=== PATIENT | male | born 1980 | race Caucasian/White ===

== ENCOUNTER 2017-02-02 00:49 | Emergency (ER) | payer OTHER ==
[~2017-02-02] VITALS: Ht 185.4 cm; Wt 127.0 kg
[~2017-02-02 00:49] MED LIST: AMOXICILLIN500 M3 PO
[2017-02-02 01:21] LABS: ABSOLUTE BASOPHIL COUNT 0 /CUMM (0.0-0.2); ABSOLUTE EOSINOPHIL COUNT 0.2 /CUMM (0.0-0.7); ABSOLUTE GRANULOCYTE CT 3.8 /CUMM (1.4-6.5); ABSOLUTE LYMPH COUNT 1.7 /CUMM (1.2-3.4); ABSOLUTE MONOCYTE COUNT 0.8 /CUMM (0.10-0.60); BASOPHIL % 0.6 % (0.0-2.0); EOSINOPHIL % 2.5 % (0-5); GRANULOCYTE % 58.1 % (42.2-75.2); HEMATOCRIT 43.6 % (42-52); MEAN CORPUSCULAR HGB 29.5 PG (27.0-31.0); MEAN CORPUSCULAR HGB CONC 34.2 G/DL (33.0-37.0); MEAN CORPUSCULAR VOLUME 86.2 FL (80.0-94.0); MEAN PLATELET VOLUME 7.9 FL (7.4-10.4); PLATELET COUNT 209 /CUMM (130-400); RBC DISTRIBUTION WIDTH 13.6 % (11.5-14.5); RED BLOOD CELL CT 5.06 /CUMM (4.70-6.10); WHITE BLOOD CELL COUNT 6.5 /CUMM (4.8-10.8)
--- NOTE | 2017-02-02 01:56 | ED GI/GU/ABDOMINAL COMPLAINT ---
History of Present Illness General Chief Complaint: Abdominal Pain/Flank Pain Stated Complaint: "PER PT ABD PAIN" Source: patient Exam Limitations: no limitations Vital Signs & Intake/Output Vital Signs & Intake/Output Vital Signs Date Time Temp Pulse Resp B/P B/P Pulse O2 O2 Flow FiO2 Mean Ox Delivery Rate 02/02 0255 97.0 80 20 120/80 98 Room Air 02/02 0108 96.6 78 16 115/83 98 Room Air Allergies Coded Allergies: No Known Allergies (09/26/16) Reconcile Medications Dicyclomine HCl 20 MG TABLET 1 TAB PO BID PRN SPASM Dicyclomine HCl 20 MG TABLET 1 TAB PO BID PRN SPASM Pantoprazole Sodium (Protonix) 40 MG TABLET.DR 1 TAB PO DAILY GERD Pantoprazole Sodium (Protonix) 40 MG TABLET.DR 1 TAB PO DAILY GERD Triage Note: 36YO MALE TO TRIAGE W/CO "STOMACH PAIN X 2 D" DENIES ANY N,V,D. STATESDECREASED APPETITE. STATES NO RELIEF AFTER GAS EX , TYLENOL Triage Nurses Notes Reviewed? yes Onset: Abrupt Duration: day(s): (2) Timing: multiple episodes today Quality/Severity: moderate, stabbing Location: periumbilical Radiation: no radiation Activities at Onset: none No Modifying Factors: none Associated Symptoms: NAUSEA, BLOATING HPI: This is a 36-year-old male with history of obesity presents to the ER for chief complaint of mid abdominal pain for the past 2 days. Pain is worse with movements. He states he felt swollen and thought maybe he had gas. Took some Gas-X without relief. Denies any vomiting nausea fever chills or belching. Her normal not bowel movement prior to arrival. He states he does feel distended. No history of similar symptoms in the past before. He is an occasional drinker. Denies any family history. Past History Travel History Traveled to [place] past 21 day No Medical History Any Pertinent Medical History? see below for history Neurological: NONE EENT: NONE Cardiovascular: NONE Respiratory: NONE Gastrointestinal: NONE Hepatic: NONE Renal: NONE Musculoskeletal: NONE Psychiatric: NONE Endocrine: NONE Blood Disorders: NONE Cancer(s): NONE Surgical History Surgical History: MULTIPLE SHOULDER SURGERIES Psychosocial History What is your primary language Slovak Tobacco Use: Never used ETOH Use: occasional use Family History Hx Contributory? No Review of Systems Review of Systems Constitutional: Denies: chills, fever. EENTM: Reports: no symptoms. Respiratory: Denies: cough, short of breath. Cardiovascular: Denies: chest pain. GI: Reports: abdominal pain, bloating. Denies: nausea, vomiting. Genitourinary: Denies: discharge, dysuria, frequency, hematuria, hesitation, nocturia, pain, urgency. Musculoskeletal: Denies: back pain. Skin: Reports: no symptoms. Neurological/Psychological: Reports: no symptoms. Hematologic/Endocrine: Denies: bruising, bleeding, polyuria, polydipsia. Immunologic/Allergic: Denies: splenectomy. All Other Systems: Reviewed and Negative Physical Exam Physical Exam General Appearance: well developed/nourished, alert, awake, mild distress, obese Head: atraumatic, normal appearance Eyes: Bilateral: normal appearance, PERRL, normal inspection. Ears, Nose, Throat, Mouth: hearing grossly normal, moist mucous membrane Neck: normal inspection, supple, full range of motion Respiratory: normal breath sounds, chest non-tender, no respiratory distress Cardiovascular: regular rate/rhythm Peripheral Pulses: 2+ radial (R), 2+ radial (L) Gastrointestinal: normal bowel sounds, soft, tenderness (PERIUMBILICAL, MILD RUQ ), NO REBOUND OR GUARDING Male Genitals: normal genitalia Back: normal inspection, normal range of motion Extremities: normal range of motion Neurologic/Psych: no motor/sensory deficits, awake, alert, oriented x 3, normal gait Skin: intact, normal color, warm/dry Core Measures ACS in differential dx? No Severe Sepsis Present: No Septic Shock Present: No Progress Differential Diagnosis: gastritis, pancreatitis, perforated viscous, SBO, IBS/ IBD Plan of Care: Orders Procedure Date/time Status LIPASE 02/02 109 Complete COMPREHENSIVE METABOLIC PANEL 02/02 109 Complete CBC WITHOUT DIFFERENTIAL 02/02 109 Complete AMYLASE 02/02 109 Complete Laboratory Tests 02/02/17 0202: Urine Color Cancelled, Urine Clarity Cancelled, Urine pH Cancelled, Ur Specific [place] Cancelled, Urine Protein Cancelled, Urine Ketones Cancelled, Urine Nitrite Cancelled, Urine Bilirubin Cancelled, Urine Urobilinogen Cancelled, Ur Leukocyte Esterase Cancelled, Ur Microscopic Cancelled, Urine Hemoglobin Cancelled, Urine Glucose Cancelled 02/02/17 0110: Anion Gap 11, Estimated GFR > 60, BUN/Creatinine Ratio 18.9, Glucose 122 H, Calcium 8.3 L, Total Bilirubin 0.4, AST 31, ALT 67, Alkaline Phosphatase 76, Total Protein 6.4, Albumin 3.9, Globulin 2.5, Albumin/Globulin Ratio 1.6, Amylase 44, Lipase 75, CBC w Diff NO MAN DIFF REQ, RBC 5.06, MCV 86.2, MCH 29.5, RDW 13.6, MPV 7.9, Gran % 58.1, Lymphocytes % 25.9, Monocytes % 12.9 H, Eosinophils % 2.5, Basophils % 0.6, Absolute Granulocytes 3.8, Absolute Lymphocytes 1.7, Absolute Monocytes 0.8 H, Absolute Eosinophils 0.2, Absolute Basophils 0, PUBS MCHC 34.2 CT scan, labs within normal limits. Patient given Bentyl and GI cocktail. [place] diet advised. Bentyl and Protonix described to the pharmacy. He'll follow-up with the primary care doctor in the office. (RENEA LYN,GIOVANNI) Diagnostic Imaging: Viewed by Me: CT Scan. Discussed w/RAD: CT Scan. Radiology Impression: PATIENT: TRUPTI NÚÑEZ PRESENT AGE: 36 PATIENT ACCOUNT NO: [id number] : 81 LOCATION: [facility] ORDERING PHYSICIAN: GIOVANNI MEIER MD SERVICE DATE: 02/02/17 EXAM TYPE: CAT - CT ABD & PELVIS W IV CONTRAST EXAMINATION: CT ABDOMEN AND PELVIS WITH CONTRAST CLINICAL INFORMATION: Mid abdominal pain and distention. Pain with movement. COMPARISON: None TECHNIQUE: Multidetector volumetric imaging was performed of the abdomen and pelvis before and after the IV administration of 95 mL of Optiray 320 intravenous contrast. Sagittal and coronal reformatted images were obtained on the technologist's workstation. DLP: 1402 mGy-cm FINDINGS: LUNG BASES: The visualized lung bases are unremarkable. LIVER, GALLBLADDER, AND BILIARY TREE: The liver is normal in size, shape, and attenuation. No focal hepatic lesion or biliary ductal dilatation is present. The gallbladder is unremarkable with no evidence of radiopaque gallstones, gallbladder wall thickening, or obvious pericholecystic inflammatory changes. PANCREAS: Unremarkable. SPLEEN: Unremarkable. ADRENAL GLANDS: Unremarkable. KIDNEYS AND URETERS: The kidneys are normal in size, shape, and attenuation. No hydronephrosis, hydroureter, or calculi seen. No perinephric stranding. BLADDER: Unremarkable. GASTROINTESTINAL TRACT: The stomach and small bowel are unremarkable. No dilated loops of bowel or evidence of obstruction. Normal appendix. No colonic wall thickening or inflammatory change. ABDOMINAL WALL: No significant hernia is appreciated. LYMPH NODES: No pathologically enlarged lymph nodes. Multiple small mesenteric lymph nodes are seen. VASCULAR: Unremarkable. PELVIC VISCERA: The prostate and seminal vesicles are unremarkable. OSSEOUS STRUCTURES: Unremarkable. IMPRESSION: No acute findings of the abdomen or pelvis. No acute inflammatory changes. DICTATED BY: DEVONTE SALGADO MD DATE/ TIME DICTATED:02/02/17227 TEAM CDL DRIVER:JAMIE DATE/TIME TRANSCRIBED: 02/02/17227 CONFIDENTIAL, DO NOT COPY WITHOUT APPROPRIATE AUTHORIZATION. < Electronically signed in Other Vendor System> SIGNED BY: DEVONTE SALGADO MD 02/02/17 023 Initial ED EKG: none Departure Departure Time of Disposition: 253 Disposition: HOME OR SELF CARE Condition: Stable Clinical Impression Primary Impression: Abdominal pain Referrals: PATIENT HAS NO PRIMARY CARE DR (PCP/Family) Additional Instructions: Take the Bentyl and Protonix as directed. Follow a bland diet and advance when you're feeling better. Follow-up with your doctor in the office. Return to ER as needed. Departure Forms: Customer Survey General Discharge Information Prescriptions: Current Visit Scripts Pantoprazole Sodium (Protonix) 1 TAB PO DAILY #30 TAB Dicyclomine HCl 1 TAB PO BID PRN SPASM #30 TAB Pantoprazole Sodium (Protonix) 1 TAB PO DAILY #30 TAB Dicyclomine HCl 1 TAB PO BID PRN SPASM #30 TAB
--- NOTE | 2017-02-02 02:34 | CT SCAN REPORT ---
EXAMINATION: CT ABDOMEN AND PELVIS WITH CONTRAST CLINICAL INFORMATION: Mid abdominal pain and distention. Pain with movement. COMPARISON: None TECHNIQUE: Multidetector volumetric imaging was performed of the abdomen and pelvis before and after the IV administration of 95 mL of Optiray 320 intravenous contrast. Sagittal and coronal reformatted images were obtained on the technologist's workstation. DLP: 1402 mGy-cm FINDINGS: LUNG BASES: The visualized lung bases are unremarkable. LIVER, GALLBLADDER, AND BILIARY TREE: The liver is normal in size, shape, and attenuation. No focal hepatic lesion or biliary ductal dilatation is present. The gallbladder is unremarkable with no evidence of radiopaque gallstones, gallbladder wall thickening, or obvious pericholecystic inflammatory changes. PANCREAS: Unremarkable. SPLEEN: Unremarkable. ADRENAL GLANDS: Unremarkable. KIDNEYS AND URETERS: The kidneys are normal in size, shape, and attenuation. No hydronephrosis, hydroureter, or calculi seen. No perinephric stranding. BLADDER: Unremarkable. GASTROINTESTINAL TRACT: The stomach and small bowel are unremarkable. No dilated loops of bowel or evidence of obstruction. Normal appendix. No colonic wall thickening or inflammatory change. ABDOMINAL WALL: No significant hernia is appreciated. LYMPH NODES: No pathologically enlarged lymph nodes. Multiple small mesenteric lymph nodes are seen. VASCULAR: Unremarkable. PELVIC VISCERA: The prostate and seminal vesicles are unremarkable. OSSEOUS STRUCTURES: Unremarkable. IMPRESSION: No acute findings of the abdomen or pelvis. No acute inflammatory changes.
[2017-02-02] MEDS ORDERED: PROTONIX40 M3 PO ×2 (02:47→02:52)
[2017-02-02] MEDS ORDERED: DICYCLOMINE HCL20 M1 PO ×2 (02:47→02:52)
[2017-02-02 02:55] VITALS: BP 120/80
== END 2017-02-02 02:59 ==
LOC: ERH 00:49
PROVIDERS: Emergency Medicine
DX: R10.33 Periumbilical pain (principal)
CPT/HCPCS: 74177

== ENCOUNTER 2017-11-02 15:12 | Emergency (ER) | payer OTHER ==
[~2017-11-02] VITALS: Ht 185.4 cm; Wt 133.8 kg
[~2017-11-02 15:12] MED LIST changes: +CYCLOBENZAPRINE10 M1 PO; +DICYCLOMINE HCL20 M1 PO; +IBUPROFEN600 M1 PO; +PROTONIX40 M3 PO
--- NOTE | 2017-11-02 17:08 | ULTRASOUND REPORT ---
EXAMINATION: US TRIPLEX LOWER EXTREMITY, LEFT CLINICAL INFORMATION: Left lower extremity pain, tenderness and swelling. COMPARISON: None. TECHNIQUE: Color-flow triplex imaging with spectral analysis and compression Doppler were performed on the left lower extremity. FINDINGS: Respiratory variation, normal compression and augmented flow are noted throughout the lower extremity. The visualized common femoral vein, proximal greater saphenous vein, femoral vein, profunda femoral vein, popliteal vein and visualized mid calf peroneal and posterior tibial venous segments show no evidence of deep venous thrombosis. There is no Calero's cyst. IMPRESSION: Normal triplex scan without evidence of deep venous thrombosis involving the left lower extremity.
[2017-11-02 17:38] LABS: ABSOLUTE BASOPHIL COUNT 0 /CUMM (0.0-0.2); ABSOLUTE EOSINOPHIL COUNT 0.2 /CUMM (0.0-0.7); ABSOLUTE GRANULOCYTE CT 4.8 /CUMM (1.4-6.5); ABSOLUTE LYMPH COUNT 1.7 /CUMM (1.2-3.4); ABSOLUTE MONOCYTE COUNT 0.8 /CUMM (0.10-0.60); BASOPHIL % 0.4 % (0.0-2.0); EOSINOPHIL % 2.7 % (0-5); GRANULOCYTE % 63.1 % (42.2-75.2); HEMATOCRIT 46.2 % (42-52); MEAN CORPUSCULAR HGB 28.9 PG (27.0-31.0); MEAN CORPUSCULAR HGB CONC 33.3 G/DL (33.0-37.0); MEAN CORPUSCULAR VOLUME 86.9 FL (80.0-94.0); MEAN PLATELET VOLUME 7.9 FL (7.4-10.4); PLATELET COUNT 289 /CUMM (130-400); RBC DISTRIBUTION WIDTH 13.2 % (11.5-14.5); RED BLOOD CELL CT 5.32 /CUMM (4.70-6.10); WHITE BLOOD CELL COUNT 7.5 /CUMM (4.8-10.8)
--- NOTE | 2017-11-02 18:17 | ED UPPER/LOWER EXTREMITY COMPL ---
History of Present Illness General Chief Complaint: General Adult Stated Complaint: ? BLOOD CLOT IN LT LEG Source: patient, family Exam Limitations: no limitations Vital Signs & Intake/Output Vital Signs & Intake/Output Vital Signs Date Time Temp Pulse Resp B/P B/P Pulse O2 O2 Flow FiO2 Mean Ox Delivery Rate 11/02 1844 98.5 77 16 142/76 96 Room Air 11/02 1654 97.2 86 17 148/82 99 Room Air 11/02 1517 96.3 93 20 152/96 97 Room Air Allergies Coded Allergies: No Known Allergies (09/26/16) Reconcile Medications Cyclobenzaprine HCl 10 MG TABLET 1 TAB PO QPM muscle strain Dicyclomine HCl 20 MG TABLET 1 TAB PO BID PRN SPASM Dicyclomine HCl 20 MG TABLET 1 TAB PO BID PRN SPASM Ibuprofen 600 MG TABLET 1 TAB PO Q6PRN PRN pain with food Pantoprazole Sodium (Protonix) 40 MG TABLET.DR 1 TAB PO DAILY GERD Pantoprazole Sodium (Protonix) 40 MG TABLET.DR 1 TAB PO DAILY GERD Triage Note: PT TO ED STATES "I THINK I HAVE A BLOOD CLOT IN MY LEFT LEG" X 3 DAYS. STATES PAIN TO LEFT LEG, HOT TO TOUCH AND TENDER. NO H/O BLOOD CLOTS. PT IS S/P RIGHT SHOULDER SURGERY 10/28 AT [facility]. Triage Nurses Notes Reviewed? yes HPI: 37 yo M presenting with left lower extremity pain. Left calf pain radiating to the left lateral rosas and left lateral thigh for the last 2-3 days, gradual onset, constant with fluctuating intensity, improved by stretching leg with foot in dorsiflexion, worse with standing on left leg. Associated sense of "heaviness " with dull ache, no parasthesias, motor weakness, temperature changes of left foot. Denies fevers, chills, chest pain, SOB, palpitations, abdominal Sx, urinary Sx, headache, neck pain or focal neurologic Sx. Recent arthroscopic surgery right shoulder 4 days ago, discharged same day without hospitalization or prolonged immobility. (Sangeeta LYN,Prasanna) Past History Travel History Traveled to [place] past 21 day No Medical History Any Pertinent Medical History? see below for history Neurological: NONE EENT: NONE Cardiovascular: NONE Respiratory: NONE Gastrointestinal: NONE Hepatic: NONE Renal: NONE Musculoskeletal: NONE Psychiatric: NONE Endocrine: NONE Blood Disorders: NONE Cancer(s): NONE Surgical History Surgical History: MULTIPLE SHOULDER SURGERIES Psychosocial History What is your primary language Sinhala Tobacco Use: Never used ETOH Use: denies use Illicit Drug Use: denies illicit drug use Family History Hx Contributory? No (Prasanna Rutherford MD) Review of Systems Review of Systems Constitutional: Reports: no symptoms. EENTM: Reports: no symptoms. Respiratory: Reports: no symptoms. Cardiovascular: Reports: no symptoms. Gastrointestinal/Abdominal: Reports: no symptoms. Genitourinary: Reports: no symptoms. Musculoskeletal: Reports: see HPI. Skin: Reports: no symptoms. Neurological/Psychological: Reports: no symptoms. Hematologic/Endocrine: Reports: no symptoms. Immunological: Reports: no symptoms. All Other Systems: Reviewed and Negative (Prasanna Rutherford MD) Physical Exam Physical Exam General Appearance: well developed/nourished, mild distress Head: atraumatic Eyes: Bilateral: PERRL, EOMI. Ears, Nose, Throat: normal pharynx, normal ENT inspection, hearing grossly normal Neck: normal inspection, supple Cardiovascular/Respiratory: regular rate/rhythm Back: normal inspection Skin: intact, normal color, warm/dry Lymphatic: no anterior cervical radha Comments: Lower extremities: Sensation intact throughout bilateral lower extremites, bilateral lower extremities warm and well perfused with symmetric tactile temperature, 2+ DP and PT pulses bilaterally, symmetic circumference of calfs bilaterally without swelling or edema Left Lower Extremity: Patient endorses pain in left lateral rosas and calf, mild TTP on exam, compartments of left lower leg soft and compressible without pain x 4, no erythema overlying painful area, no subcutaneous crepitus with palpation (Prasanna Rutherford MD) Progress Differential Diagnosis: arterial insufficiency, cellulitis, CHF, compartment syndrome, contusion, dislocation, DVT, fracture, gout, septic arthritis, sprain, tendon injury Plan of Care: Orders Procedure Date/time Status Add-on Test (ER Only) 11/02 1757 Active CREATINE PHOSPHOKINASE 11/02 172 Complete PHOSPHORUS 11/02 171 Complete MAGNESIUM 11/02 171 Complete CBC WITHOUT DIFFERENTIAL 11/02 171 Complete BASIC METABOLIC PANEL 11/02 171 Complete Current Medications Sig/Lul Start time Last Medication Dose Stop Time Status Admin Ketorolac 30 MG ONCE ONE 11/02 171 CAN Tromethamine 11/02 171 (Toradol) Laboratory Tests 11/02/17 1726: Anion Gap 15, Estimated GFR > 60, BUN/Creatinine Ratio 22.5, Glucose 98, Calcium 9.3, Phosphorus 3.8, Magnesium 1.8, Creatine Kinase 166, CBC w Diff NO MAN DIFF REQ, RBC 5.32, MCV 86.9, MCH 28.9, MCHC 33.3, RDW 13.2, MPV 7.9, Gran % 63.1, Lymphocytes % 23.2, Monocytes % 10.6 H, Eosinophils % 2.7, Basophils % 0.4, Absolute Granulocytes 4.8, Absolute Lymphocytes 1.7, Absolute Monocytes 0.8 H, Absolute Eosinophils 0.2, Absolute Basophils 0 Physician MDM: 37 yo M presenting with left lower extremity pain. VSS, afebrile, exam as above. DDx: Musculoskeletal sprain/strain, sciatica, less likely early cellulitis, DVT, low concern for compartment syndrome, deep space abscess, necrotiizing fascitis. CBC without leukocytosis, BMP unremarkable. CK normal. LLE DVT U/S without clot, patient counseled to follow up with PMD for repeat ultrasound in 4-7 days. Bedside ultrasound of painful LLE site without cobblestoning or suggestion of cellulitis, no fluid collection along deeper fascial planes or evidence of air, no focal fluid collection, no apparent tendon or muscle rupture. Given toradol and oxycodone with improvement in pain. On re- examination patient resting comfortably, ambulatory with and even gait without assistance, requesting discharge. Overall low concern for necrotiizing fascitis or compartment syndrome discussed with patient in light of normal lab work and benign exam, discussed signs and symptoms concerning for either disease process, patient given strict return precautions for worsening pain, redness, fevers, or neurovascular Sx in left foot. Discharged with return precautions, has pain control at home, plan to f/u with orthopedist or PMD in the next 2-3 days. (Sangeeta LYN,Prasanna) Departure Departure Disposition: HOME OR SELF CARE Condition: Stable Clinical Impression Primary Impression: Pain of left lower extremity Referrals: David LYN,Nafisa (PCP/Family) Additional Instructions: Take tylenol or ibuprofen for mild-moderate pain. Take oxycodone for severe pain. Follow up with your primary care physician for repeat ultrasound of the left leg in 4-7 days. Return to the for fevers, worsening pain, or redness in left lower extremity. Return to the ED for any new, worsening, or concerning symptoms. Departure Forms: Customer Survey General Discharge Information (Sangeeta LYN,Prasanna) Resident Co-Sign Statement Statement: ED Attending supervision documentation- I saw and evaluated the patient. I have also reviewed all the pertinent lab results and diagnostic results. I agree with the findings and the plan of care as documented in the Resident's documentation. x I have reviewed the ED Record and agree with the Resident's documentation. [] Additions or exceptions (if any) to the Resident's note and plan are summarized below: [] (Ruma LYN,Douglas)
[2017-11-02 18:44] VITALS: BP 142/76
== END 2017-11-02 18:46 ==
LOC: ERH 15:12
PROVIDERS: Student in an Organized Health Care Education/Training Program
DX: M79.662 Pain in left lower leg (principal)
CPT/HCPCS: 96372; J1885